=== PATIENT | female | born 1935 | race Caucasian/White ===

== ENCOUNTER 2017-08-26 08:51 | Outpatient (CLI) | payer MEDICARE, OTHER ==
[2013-05-27 16:50] VITALS: BP 127/62
== END 2017-08-26 09:51 ==
LOC: POD 08:51
PROVIDERS: ATTEND Podiatrist Public Medicine
DX: E11.9 Type 2 diabetes mellitus without complications (principal); L60.0 Ingrowing nail; M79.675 Pain in left toe(s); M79.674 Pain in right toe(s); B35.1 Tinea unguium; L84 Corns and callosities
CPT/HCPCS: 11721; G0463

== ENCOUNTER 2017-12-09 08:54 | Outpatient (CLI) | payer MEDICARE, OTHER ==
[2013-05-27 16:50] VITALS: BP 127/62
== END 2017-12-09 08:55 ==
LOC: POD 08:54
PROVIDERS: ATTEND Podiatrist Public Medicine
DX: E11.9 Type 2 diabetes mellitus without complications (principal); B35.1 Tinea unguium; L84 Corns and callosities; L60.0 Ingrowing nail; M79.674 Pain in right toe(s); M79.675 Pain in left toe(s)
CPT/HCPCS: 11721; G0463